=== PATIENT | male | born 1965 | race Caucasian/White ===

== ENCOUNTER 2021-07-05 18:50 | Emergency (ER) | payer OTHER ==
[~2021-07-05] VITALS: Ht 182.9 cm; Wt 79.5 kg
[2021-07-05 18:51] VITALS: BP 161/66
[2021-07-05] MEDS ORDERED: PROPARACAINE 0.5% OPHTH SOL 15ML OS ONE (19:00)
[2021-07-05] MEDS ORDERED: FLUORESCEIN OPHTH 1 MG STRIP OS ONE (19:00)
[2021-07-05] MEDS ORDERED: BOOSTRIX/ADACEL VACCINE (DIPHTH/PERTUSS/ACELL/TETANUS) 0.5ML SYR IM ONE (19:10)
[2021-07-05] MEDS ORDERED: POLYSOL OP (20:12)
== END 2021-07-05 20:18 | disposition home or self-care (01) ==
LOC: M ED 18:50
DX: T15.02XA Foreign body in cornea, left eye, initial encounter (principal); F17.200 Nicotine dependence, unspecified, uncomplicated